=== PATIENT | male | born 1955 | race Caucasian/White ===

== ENCOUNTER 2020-08-13 19:53 | Emergency (ER) | payer OTHER ==
[~2020-08-13] VITALS: Ht 180.3 cm; Wt 72.6 kg
[~2020-08-13 19:53] MED LIST: NORCO 5-325 TA1 EACH PO; SILVADENE20 GM TP
[2020-08-13 20:09] VITALS: BP 152/81
[2020-08-13] MEDS ORDERED: NORCO5 PO (20:55)
== END 2020-08-13 21:29 | disposition home or self-care (01) ==
LOC: ER 19:53
DX: S82.092A Other fracture of left patella, initial encounter for closed fracture (principal); Z79.891 Long term (current) use of opiate analgesic; Z72.89 Other problems related to lifestyle; W01.198A Fall on same level from slipping, tripping and stumbling with subsequent striking against other object, initial encounter; Y93.F9 Activity, other caregiving; Y92.89 Other specified places as the place of occurrence of the external cause; Y99.8 Other external cause status